=== PATIENT | female | born 1955 | race Caucasian/White ===

== ENCOUNTER → 2024-01-25 12:04 | Outpatient (REF) | payer MEDICARE, OTHER, SELFPAY | LOC: RAD 12:04 | PROVIDERS: ATTENDING PHYSICIAN Family Medicine | DX: M25.532 Pain in left wrist (principal) | CPT/HCPCS: 73110 ==

== ENCOUNTER → 2024-04-02 17:19 | Outpatient (REF) | payer MEDICARE, OTHER, SELFPAY | LOC: MRI 3T 17:19 | PROVIDERS: ATTENDING PHYSICIAN Family Medicine | DX: M25.532 Pain in left wrist (principal) | CPT/HCPCS: 73221 ==

== ENCOUNTER → 2024-07-03 18:01 | Outpatient (REF) | payer MEDICARE, OTHER, SELFPAY | LOC: WDC 18:01 | PROVIDERS: ATTENDING PHYSICIAN Obstetrics & Gynecology; FAMILY PHYSICIAN Family Medicine | DX: Z12.31 Encounter for screening mammogram for malignant neoplasm of breast (principal) | CPT/HCPCS: 77063; 77067 ==

== ENCOUNTER → 2024-12-19 13:38 | Outpatient (REF) | payer MEDICARE, OTHER, SELFPAY | LOC: RAD 13:38 | PROVIDERS: ATTENDING PHYSICIAN Emergency Medicine; FAMILY PHYSICIAN Family Medicine | DX: M79.605 Pain in left leg (principal) | CPT/HCPCS: 93971 ==

== ENCOUNTER → 2024-12-20 12:55 | Outpatient (REF) | payer MEDICARE, OTHER, SELFPAY | LOC: MRI 3T 12:55 | PROVIDERS: ATTENDING PHYSICIAN Emergency Medicine; FAMILY PHYSICIAN Family Medicine | DX: H93.A1 Pulsatile tinnitus, right ear (principal) | CPT/HCPCS: 70553; A9575 ==

== ENCOUNTER → 2025-01-08 13:13 | Outpatient (REF) | payer MEDICARE, OTHER, SELFPAY | LOC: HWRAD 13:13 | PROVIDERS: ATTENDING PHYSICIAN Internal Medicine Rheumatology; FAMILY PHYSICIAN Family Medicine | DX: M81.0 Age-related osteoporosis without current pathological fracture (principal) | CPT/HCPCS: 77080 ==

== ENCOUNTER → 2025-01-08 18:12 | Outpatient (REF) | payer MEDICARE, OTHER, SELFPAY | LOC: MRI 18:12 | PROVIDERS: ATTENDING PHYSICIAN Emergency Medicine; FAMILY PHYSICIAN Family Medicine | DX: H93.A1 Pulsatile tinnitus, right ear (principal); H93.A3 Pulsatile tinnitus, bilateral | CPT/HCPCS: 70546; A9585 ==

== ENCOUNTER → 2025-03-26 12:47 | Outpatient (REF) | payer MEDICARE, OTHER, SELFPAY | LOC: RAD 12:47 | PROVIDERS: ATTENDING PHYSICIAN Family Medicine | DX: Z86.73 Personal history of transient ischemic attack (TIA), and cerebral infarction without residual deficits (principal); G45.9 Transient cerebral ischemic attack, unspecified | CPT/HCPCS: 93880 ==

== ENCOUNTER 2025-07-02 06:22 | Day surgery (SDC) | payer MEDICARE, OTHER, SELFPAY | END 2025-07-02 08:35 | disposition home or self-care (01) | LOC: GI 06:22 | PROVIDERS: ATTENDING PHYSICIAN Internal Medicine Gastroenterology | DX: Z12.11 Encounter for screening for malignant neoplasm of colon (principal); K57.30 Diverticulosis of large intestine without perforation or abscess without bleeding; K64.8 Other hemorrhoids | CPT/HCPCS: G0105 ==